=== PATIENT | female | born 2000 ===

== ENCOUNTER 2023-08-26 22:33 | Emergency (ER) | payer OTHER ==
[~2023-08-26] VITALS: Ht 167.6 cm; Wt 72.1 kg
[2023-08-27 00:15] LABS: BILIRUBIN, URINE NEGATIVE (negative); BLOOD/HGB, URINE LARGE (Negative); KETONE, URINE NEGATIVE (Negative); LEUK ESTERASE, URINE SMALL (negative); NITRITE, URINE NEGATIVE (negative); PH, URINE 6.5 (5-7)
[2023-08-27 00:19] LABS: HEMOGLOBIN 13.8 g/dL (12.0-18.0)
[2023-08-27 00:20] LABS: EPITHELIAL CELLS, URINE SQUAMOUS 1+ /lpf (0-1+); RED BLOOD CELLS, URINE >50 /hpf (0-5); WHITE BLOOD CELLS, URINE 21-40 /HPF (0-5)
[2023-08-27 00:21] LABS: BACTERIA, URINE RARE /hpf (negative); CASTS, URINE NONE SEEN \\lpf; CRYSTALS, URINE NONE SEEN (0-1+); REFLEX CULTURE, URINE Yes (No)
[2023-08-27 00:22] LABS: BASOPHILS 0.2 % (0-2); EOSINOPHILS 1.1 % (0-6); HEMATOCRIT 40.8 % (35.0-50.0); LYMPHOCYTES 17.6 % (24-44); MCHC 33.9 g/dl (30-36); MCV 91.5 fl (81-99); MONOCYTES 9.6 % (0-12); NEUTROPHILS 71.5 % (39-80); PLATELET COUNT 263 K/uL (140-440); RBC 4.46 M/ul (4.3-5.7); RDW 12.5 (10.5-15.0)
[2023-08-27 00:33] LABS: ALBUMIN 3.9 g/dL (3.4-5.0); ALBUMIN/GLOBULIN RATIO 1.08 (1.1-2.4); ANION GAP 16.5 (7-21); BILIRUBIN, TOTAL 0.3 ng/dL (0.2-1.0); BUN/CREATININE RATIO 5.81 (6.0-28.6); CALCIUM 9.5 mg/dL (8.5-10.1); CREATININE, SERUM 0.86 mg/dL (0.55-1.02); MAGNESIUM 1.9 mg/dL (1.8-2.4); POTASSIUM 3.5 mmol/L (3.5-5.1); PROTEIN, TOTAL 7.5 g/dL (6.4-8.2)
[2023-08-27 01:02] LABS: INFLUENZA B NAA NEGATIVE (NEGATIVE); RESPIRATORY SYNCYTIAL VIR NAA NEGATIVE (NEGATIVE)
[2023-08-27] MEDS ORDERED: LOMOTIL TABLET1 EACH PO (01:10)
[2023-08-27] MEDS ORDERED: ONDANSETRON ODT8 MG PO (01:10)
[2023-08-27] MEDS ORDERED: HYDROCODON-ACE1 EA10 PO (01:10)
[2023-08-27] MEDS ORDERED: CEFDINIR300 MG PO (01:10)
[2023-08-27 02:28] VITALS: BP 122/76
== END 2023-08-27 02:20 | disposition home or self-care (01) ==
LOC: ED 22:33
PROVIDERS: Family Medicine
DX: N30.91 Cystitis, unspecified with hematuria (principal); I88.0 Nonspecific mesenteric lymphadenitis; R16.1 Splenomegaly, not elsewhere classified; Z91.040 Latex allergy status; Z20.822 Contact with and (suspected) exposure to COVID-19
CPT/HCPCS: 36415; 74176; 80053; 81001; 83735; 84703; 85025; 87088; 87502; 96374; 96375; 99284-25; A9270; C9803; J0696; J2270; J2405; J7030; U0002